=== PATIENT | female | born 1965 | race Caucasian/White ===

== ENCOUNTER → 2018-08-31 | Day surgery (SDC) | payer OTHER ==
[2018-08-30 14:45] LABS: BASOPHILS # (AUTO) 0.1 (0.0-0.1); BASOPHILS % 0.8 % (0.0-1.0); EOSINOPHILS # (AUTO) 0.1 (0.0-0.4); EOSINOPHILS % 1.1 % (0.0-6.0); HEMATOCRIT 38.8 % (34.2-44.1); LYMPHOCYTES # (AUTO) 2.4 (1.0-3.2); LYMPHOCYTES % 37.6 % (18.0-39.1); MEAN CORPUSCULAR HEMOGLOBIN 30.7 pg (28-32); MEAN CORPUSCULAR HGB CONC 33.5 g/dL (31-35); MEAN CORPUSCULAR VOLUME 91.7 fL (81-99); MONOCYTES # (AUTO) 0.4 (0.2-0.8); MONOCYTES % 6.1 % (4.4-11.3); NEUTROPHILS # (AUTO) 3.5 (2.1-6.9); NEUTROPHILS % 54.2 % (38.7-80.0); PLATELET COUNT 346 x10e3/uL (140-360); RED BLOOD COUNT 4.23 x10e6/uL (3.6-5.1); RED CELL DISTRIBUTION WIDTH 12.4 % (11.7-14.4)
[2018-08-30 15:10] LABS: ALANINE AMINOTRANSFERASE 20 IU/L (0-55); ALBUMIN 4.1 g/dL (3.5-5.0); ALBUMIN/GLOBULIN RATIO 1.1 (0.8-2.0); ALKALINE PHOSPHATASE 86 IU/L (40-150); ANION GAP 12.5 mmol/L (8-16); BLOOD UREA NITROGEN 15 mg/dL (7-26); BUN/CREATININE RATIO 19 (6-25); CALCIUM 10.4 mg/dL (8.4-10.2); CARBON DIOXIDE 31 mmol/L (22-29); CHLORIDE 102 mmol/L (98-107); CHOL/HDL RATIO 4.3 (3.0-3.6); CHOLESTEROL 223 MD/DL (0-199); CREATININE, SERUM 0.79 mg/dL (0.57-1.11); EST GLOMERULAR FILTRATION RATE > 60 ML/MIN (60-); GLUCOSE 121 mg/dL (74-118); HDL CHOLESTEROL 52 MG/DL (40-60); LDL CHOLESTEROL 124 MG/DL (60-130); POTASSIUM 3.5 mmol/L (3.5-5.1); SODIUM 142 mmol/L (136-145); TRIGLYCERIDES 237 MG/DL (0-149)
[2018-08-30 15:30] LABS: THYROID STIMULATING HORMONE 2.297 uIU/mL (0.350-4.940)
[~2018-08-31] VITALS: Ht 154.9 cm; Wt 65.8 kg
[2018-08-31] VITALS (8 sets, daily range): BP systolic 113–154; BP diastolic 70–89
[~2018-08-31] MED LIST: ASPIR 8181 MG PO; CRESTOR10 MG PO; DALIRESP500 MCG PO; ESCITALOPRAM OX20 MG PO; FENTANYL CITRATE/PF 100MCG/2 ML INJ ONE; HEPARIN SOD/SOD CHLORIDE 2,000 ML ONE; IOPAMIDOL 370 MG/ML 200 ML INFUS..BTL INJ ONE; JARDIANCE PO; LEVOCETIRIZINE D5 MG PO; LEVOTHYROXINE50 MCG PO; LIDOCAINE HCL 2% LOCAL 20 ML VIAL ONE; LOSARTAN-HCTZ1 EACH PO; METOPROLOL SUCC25 MG PO; MIDAZOLAM HCL 2 MG/2 ML VIAL ONE; NEXIUM40 MG PO; PLAVIX75 MG PO; PROAIR HFA INH8.5 GM INH; SODIUM CHLORIDE 0.9% 1000ML 1,000 ML ONE; SYMBICORT INHALER INH; VERAPAMIL HCL 2.5 MG/ML 2 ML VIAL ONE
--- OUTSIDE RECORDS SUMMARY | 2018-08-31 07:35 | XMS REPORT | Continuity of Care Document ---
Author Author [facility] Interface Address Unknown Phone Unavailable Problems Problem Status Onset Date Classification Date Reported Comments Source Medications Medication Details Route Status Patient Instructions Ordering Provider Order Date Source Allergies, Adverse Reactions, Alerts Substance Category Reaction Severity Reaction type Status Date Reported Comments Source Immunizations Immunization Date Given Site Status Last Updated Comments Source Results Order Name Results Value Reference Range Date Interpretation Comments Source Vital Signs Vital Sign Value Date Comments Source Encounters Location Location Details Encounter Type Encounter Number Reason For Visit Attending Provider ADM Date DC Date Status Source [facility] [place] [facility] [id number] Rico Esposito 06/13/2014 06/14/2014 [facility] [id number] TERESITA ROCHA 03/01/2016 [facility] Procedures Procedure Code Date Perfomer Comments Source
--- OUTSIDE RECORDS SUMMARY | 2018-08-31 07:35 | XMS REPORT | Summary of Care ---
Author Organization Unknown Address Unknown Phone Unavailable Encounter HQ Encntr_alias(FIN) [id number] Date(s): 06/13/14 - 06/13/14 [facility] [place] [address] [place] [address] [phone] Discharge Disposition: Home Physician Attending: Rico Esposito MD Vital Signs No data available for this section Problem List No data available for this section Allergies, Adverse Reactions, Alerts Substance Reaction Severity Status NKDA Active Medications No data available for this section Results No data available for this section Immunizations No data available for this section Procedures No data available for this section Social History No data available for this section Assessment and Plan No data available for this section
--- NOTE | 2018-08-31 09:38 | NUR ---
0938 Received pt in #[id number] RT Tr band approach No fix. (14cc) ok to titrate (1015 am). Back to baseline orientation.Resp shallow and regular. 97% Sat Denies necessity to defecate or urinate. Iv site w/o s/s infiltration. Son at bedside.Reviewed POC DR Turner spoke with pt and family. Has copies of DC plans. Nil femoral pulse present.No gross issues pain,pallor,pressure or dysrhythmia. 1015am Tr titration initiated -2cc 14cc balloon no hematoma or bleeding Adequate radial pulse. 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 Iv removed site w/o s/s infiltration Dc with [facility]C escort to home stable NO gross signs pain pallor pressure or dysrhythmia. ds/rn
--- NOTE | 2018-08-31 16:28 | Operative Report ---
DATE OF PROCEDURE: 08/31/2018 SURGEON: Feroz Turner MD CARDIAC CATHETERIZATION REPORT INDICATION FOR PROCEDURE: History of CAD, chest pain, and positive stress test. PREPROCEDURE ASSESSMENT: The patient's social history, medical history, prior experience with anesthesia was reviewed prior to the procedure. The patient was deemed to be an appropriate candidate for moderate sedation. The risks, the benefits, and alternatives to the procedure were explained to the patient prior to the procedure. An informed consent was obtained and is documented in the medical record. MEDICATIONS: Please see nursing notes for medications administered during the procedure. PROCEDURES PERFORMED: 1. Coronary angiography, right radial approach. 2. Left heart catheterization. PROCEDURE DETAILS: The patient was brought to the cardiac catheterization laboratory in a fasting state. Right wrist was prepped and draped in a sterile fashion. A 5-[place] slender sheath was inserted in the right radial artery using modified Seldinger technique. Coronary angiography and left heart catheterization was performed using Patricia radial catheter. Multiple orthogonal views were taken for each coronary artery. All catheters were removed over a wire. Case ended without any complications. Arteriotomy was closed using a TR band. SIGNIFICANT FINDINGS: 1. Left main: No significant CAD. 2. LAD: Large vessel, goes to the apex. There is a 30% plaque in the proximal LAD just before the first diagonal branch. There are two medium-sized diagonal branches. Diagonal-1 has a 60% lesion at the ostium. This LAD is very tortuous. 3. Left circumflex: Large dominant left circumflex artery, stent present in the proximal circumflex is widely patent. There are three medium-sized OM branches as well as distal left PDA branch, they are tortuous, however, no obstructive CAD is present. 4. RCA: Small nondominant RCA. Left heart catheterization: LVEDP of 20 mmHg. No gradient across the aortic valve. COMPLICATIONS: None. ESTIMATED BLOOD LOSS: 10 mL. GRAFTS AND IMPLANTS: None. RECOMMENDATIONS: 1. TR band deflation in 30 minutes. 2. Continue optimal medical therapy and risk factor control. 3. Follow up in clinic with Dr. Ju Boudreaux in 2 weeks post procedure. We will continue to follow. Feroz Turner MD KVP/MODL /[id number]
[2018-09-01 11:30] VITALS: BP 112/77
--- NOTE | 2018-09-01 11:30 | NUR ---
1130 Rt wrist tr band titration completed.Sterile 2x2 and Tegaderm and Coban. Wrist splint in place. No gross issues with pain pallor,pressure and dysrhythmia.Dc POC discussed and understood by family and pt. Has copies of POC escorted to car per w/c with RN aware of importance of followup care. ds/rn
== END | disposition home or self-care (01) ==
LOC: CATH LAB 07:33
PROVIDERS: ATTEND Internal Medicine Interventional Cardiology
DX: I25.10 Atherosclerotic heart disease of native coronary artery without angina pectoris (principal); Z01.812 Encounter for preprocedural laboratory examination; R07.9 Chest pain, unspecified; I10 Essential (primary) hypertension; E78.5 Hyperlipidemia, unspecified; R09.89 Other specified symptoms and signs involving the circulatory and respiratory systems; I73.9 Peripheral vascular disease, unspecified; E07.9 Disorder of thyroid, unspecified; I25.2 Old myocardial infarction; J44.9 Chronic obstructive pulmonary disease, unspecified
CPT/HCPCS: 36415; 80053; 80061; 83036; 84443; 85025; 93458; C1769; C1887; J2001; J2250; J7030; Q9967